=== PATIENT | female | born 1980 | race Caucasian/White ===

== ENCOUNTER 2016-11-05 20:41 | Inpatient (IN) | payer OTHER ==
[~2016-11-05] VITALS: Ht 162.6 cm; Wt 96.7 kg
[2016-11-05] MEDS ORDERED: LACTATED RINGER'S 1,000 ML IV SCH (21:11)
[2016-11-05] MEDS ORDERED: LIDOCAINE 1% (MPF) 30 ML INJ ONE (21:13)
[2016-11-05 21:25] VITALS: Ht 162.6 cm; Wt 96.7 kg
[2016-11-05 21:30] LABS: ADD SCAN DIFF NO
[2016-11-05] MEDS ORDERED: OXYTOCIN 30 UNITS/LR 500 ML IV PRN (21:30)
[2016-11-05] MEDS ORDERED: MISOPROSTOL 200 MCG TAB PR PRN (21:30)
[2016-11-05] MEDS ORDERED: AMPICILLIN 2 GM/NS (PMX) 100 ML IV ONE (21:30)
[2016-11-05] MEDS ORDERED: LACTATED RINGER'S 1,000 ML IV PRN (21:30)
[2016-11-05] MEDS ORDERED: LIDOCAINE 1% (MPF) 30 ML INJ INJ PRN (21:30)
[2016-11-05] MEDS ORDERED: BUTORPHANOL 2 MG INJ IV PRN ×2 (21:30)
[2016-11-05] MEDS ORDERED: ACETAMINOPHEN/CODEINE #3 TAB PO PRN (21:30)
[2016-11-05] MEDS ORDERED: CARBOPROST 250 MCG INJ IM PRN (21:30)
[2016-11-05] MEDS ORDERED: IBUPROFEN 600 MG TAB PO PRN (21:30)
[2016-11-05] MEDS ORDERED: METHYLERGONOVINE 0.2 MG INJ IM PRN (21:30)
[2016-11-05] MEDS ORDERED: OXYTOCIN 30 UNITS/LR 500 ML IV SCH ×2 (21:30)
[2016-11-05 21:31] LABS: BASOPHILS % 0.3 % (0.0-2.0); EOSINOPHILS # 0.1 10^3/ul (0.0-0.5); EOSINOPHILS % 0.6 % (0.0-7.0); HEMATOCRIT 39.8 % (37.0-47.0); HEMOGLOBIN 13.1 g/dl (12.0-16.0); LYMPHOCYTES # 1.8 10^3/ul (0.8-2.9); LYMPHOCYTES % 19.5 % (15.0-51.0); MEAN CORPUSCULAR HEMOGLOBIN 28.2 pg (29.0-33.0); MEAN CORPUSCULAR HGB CONC 32.9 g/dl (32.0-37.0); MEAN CORPUSCULAR VOLUME 85.6 fl (82.0-101.0); MEAN PLATELET VOLUME 10.1 fl (7.4-10.4); MONOCYTE # 0.7 10^3/ul (0.3-0.9); MONOCYTES % 7.5 % (0.0-11.0); NEUTROPHIL # 6.7 10^3/ul (1.6-7.5); NEUTROPHILS % 71.7 % (39.0-77.0); PLATELET COUNT 306 10^3/UL (140-415); RED BLOOD COUNT 4.65 10^6/ul (4.20-5.40); RED CELL DISTRIBUTION WIDTH 14.6 % (11.5-14.5); WHITE BLOOD COUNT 9.3 10^3/ul (4.8-10.8)
[2016-11-05 21:47] LABS: INR 0.89; PT RATIO 0.9
[2016-11-05 21:48] LABS: PARTIAL THROMBOPLASTIN TIME 26.7 Sec (25.0-35.0)
--- NOTE | 2016-11-05 21:59 | LDN ---
Date/Time of Note Date/Time of Note DATE: 11/05/16 TIME: 21:58 Delivery Summary Weeks of Gestation 39 wks Meconium: none Episiotomy: No Anesthesia type: None Estimated blood loss: 200 Sponge & Needle done & correct: Yes All needle counts correct: Yes Any foreign bodies felt in the: No Problems: Delivery Information Sex Sex: female Apgars 1 Minute: 9 5 Minute: 9 Suctioning Nose & mouth suctioned at murphy: Yes Delee suction performed: Yes Umbilical Cord Umbilical cord with: 3 Vessels Cord presentations: nuchal cord Nuchal cord present X: 1 Cord Blood was obtained: Yes Mother & Baby Disposition Disposition Mom & Baby to Maternity; Good: Yes Baby to NICU: No JAZLYN MORELOS M.D. November 05, 2016 21:59
--- NOTE | 2016-11-05 22:01 | HP ---
Date/Time of Note Date/Time of Note DATE: 11/05/16 TIME: 22:00 OB - History Hx of Present Free Text/Dictation @39+wks GA : 5 Para: 3 Care: Good Care Ultrasounds: Normal mid trimester US Obstetrical Complications: None Medical Complications: None Past Family/Social History * Past Medical, Surgical, Family and Obstetric Histories reviewed from chart. OB Admission Exam Physical Exam Abdomen: WNL Extremities: Normal Cervical Dilatation: 5cm Effacement: 75% Station: -1 Membranes: Ruptured Amniotic Fluid: Clear Heart Rate: 140's Accelerations: Accelerations Present Decelerations: No Decelerations Varibility: Moderate Contractions on Admission: < 5 Minutes Apart Last 72 hours Lab Results CBC & BMP 11/05/16 21:15 OB Assessment/Plan Reason for admission: active labor Plan: Expectant Management JAZLYN MORELOS M.D. November 05, 2016 22:01
[2016-11-05 23:50] VITALS: BP 121/77; PULSE 77; RESP 18
[2016-11-06 00:05] VITALS: BP 105/58; PULSE 89; RESP 18
[2016-11-06] MEDS: LACTATED RINGER'S 1,000 ML IV* SCH ×3 (00:31→15:48)
[2016-11-06] MEDS ORDERED: LANOLIN 7 GM TUBE TOP PRN (01:00)
[2016-11-06] MEDS ORDERED: BENZOCAINE 20% 56 ML SPRAY TOP PRN (01:00)
[2016-11-06] MEDS ORDERED: OXYTOCIN 30 UNITS/LR 500 ML IV PRN (01:00)
[2016-11-06] MEDS ORDERED: METHYLERGONOVINE 0.2 MG INJ IM PRN (01:00)
[2016-11-06] MEDS ORDERED: OXYCODONE/ASPIRIN (4.88/325) TAB PO PRN (01:00)
[2016-11-06] MEDS ORDERED: MISOPROSTOL 200 MCG TAB PR PRN (01:00)
[2016-11-06] MEDS ORDERED: ZOLPIDEM 5 MG TAB PO PRN (01:00)
[2016-11-06] MEDS ORDERED: CARBOPROST 250 MCG INJ IM PRN (01:00)
[2016-11-06] MEDS ORDERED: WITCH HAZEL/GLYCERIN PAD PR PRN (01:00)
[2016-11-06] MEDS ORDERED: DIPHENHYDRAMINE 25 MG CAP PO PRN (01:00)
[2016-11-06] MEDS ORDERED: AMPICILLIN 1 GM/NS (PMX) 50 ML IV SCH (01:30)
[2016-11-06 04:20] VITALS: BP 104/67; PULSE 85; RESP 20
[2016-11-06] MEDS: IBUPROFEN 600 MG TAB PO SCH ×4 (05:46→23:51)
[2016-11-06 08:00] VITALS: BP 102/55; PULSE 85; RESP 19
[2016-11-06 08:10] LABS: ADD SCAN DIFF NO
[2016-11-06 08:19] LABS: BASOPHILS % 0.2 % (0.0-2.0); EOSINOPHILS % 0.4 % (0.0-7.0); HEMATOCRIT 35.9 % (37.0-47.0); HEMOGLOBIN 11.8 g/dl (12.0-16.0); LYMPHOCYTES % 17.7 % (15.0-51.0); MEAN CORPUSCULAR HEMOGLOBIN 28.7 pg (29.0-33.0); MEAN CORPUSCULAR HGB CONC 32.9 g/dl (32.0-37.0); MEAN CORPUSCULAR VOLUME 87.3 fl (82.0-101.0); MEAN PLATELET VOLUME 10.8 fl (7.4-10.4); MONOCYTE # 0.9 10^3/ul (0.3-0.9); MONOCYTES % 8.3 % (0.0-11.0); NEUTROPHIL # 8.2 10^3/ul (1.6-7.5); PLATELET COUNT 244 10^3/UL (140-415); RED BLOOD COUNT 4.11 10^6/ul (4.20-5.40); RED CELL DISTRIBUTION WIDTH 14.7 % (11.5-14.5); WHITE BLOOD COUNT 11.3 10^3/ul (4.8-10.8)
--- NOTE | 2016-11-06 09:24 | PN ---
Date/Time of Note Date/Time of Note DATE: 11/06/16 TIME: 09:23 OB Subjective Subjective Subjective day 1 Afebrile vital signs stable abdomen soft uterus firm lochia normal extremity normal Labs Hematology Labs Hematology Test 11/06/16 06:45 White Blood Count 11.310^3/ul (4.8-10.8) Red Blood Count 4.1110^6/ul (4.20-5.40) Hemoglobin 11.8g/dl (12.0-16.0) Hematocrit 35.9% (37.0-47.0) Mean Corpuscular Volume 87.3fl (82.0-101.0) Mean Corpuscular Hemoglobin 28.7pg (29.0-33.0) Mean Corpuscular Hemoglobin Concent 32.9g/dl (32.0-37.0) Red Cell Distribution Width 14.7% (11.5-14.5) Platelet Count 90986^3/UL (140-415) Mean Platelet Volume 10.8fl (7.4-10.4) Neutrophils % 73.0% (39.0-77.0) Lymphocytes % 17.7% (15.0-51.0) Monocytes % 8.3% (0.0-11.0) Eosinophils % 0.4% (0.0-7.0) Basophils % 0.2% (0.0-2.0) Nucleated Red Blood Cells % 0.0/100WBC (0.0-0.0) Neutrophils # 8.210^3/ul (1.6-7.5) Lymphocytes # 2.010^3/ul (0.8-2.9) Monocytes # 0.910^3/ul (0.3-0.9) Eosinophils # 0.010^3/ul (0.0-0.5) Basophils # 0.010^3/ul (0.0-0.1) Nucleated Red Blood Cells # 0.010^3/ul (0.0-0.0) Coagulation Labs: Coagulation Test 11/05/16 21:15 Prothrombin Time 12.0Sec (12.2-14.2) Prothrombin Time Ratio 0.9 INR International Normalized Ratio 0.89 Activated Partial Thromboplast Time 26.7Sec (25.0-35.0) Labs Labs Test 11/05/16 21:15 Hepatitis B Surface Antigen NEGATIVE (NEGATIVE) TINO KUMAR MD November 06, 2016 09:24
[2016-11-06 16:00] VITALS: BP 111/66; PULSE 81; RESP 18
[2016-11-07] MEDS: LACTATED RINGER'S 1,000 ML IV* SCH ×3 (00:31→16:31)
[2016-11-07 04:20] VITALS: BP 112/53; PULSE 70; RESP 18
[2016-11-07] MEDS: IBUPROFEN 600 MG TAB PO SCH ×3 (05:37→17:32)
[2016-11-07 07:45] VITALS: BP 107/63; PULSE 83; RESP 19
[2016-11-07] MEDS ORDERED: DIPHTH/TET/ACEL PERTUSS (ADULT) 0.5 ML VIAL IM* ONE (09:00)
--- NOTE | 2016-11-07 11:41 | PD.PPDC ---
MICROBIOLOGY ANALYST Discharge Instruction Condition Patient Condition: Good Diet Diet: Resume Regular Diet Activity/Restrictions Restrictions: No Exercising No Lifting No Driving No Sexual Activity Nothing in the Vagina No [place] No Tampons, douche Follow-up Follow-up with Physician: 2, Week/Weeks Provider Information: Appointment clinic in 2 weeks for check Return to clinic for COMMERCIAL ANALYST Instructions: Fever greater than 101 Chills Worsening abdominal pain Excessive Vaginal Bleeding More than 2 pads per hour Unable to tolerate diet OB Instructions: Breast Tenderness Depression Blurried Vision Headache TINO KUMAR MD November 07, 2016 11:41
--- NOTE | 2016-11-07 11:44 | DS ---
Date/Time of Note Date/Time of Note DATE: 11/07/16 TIME: 11:41 Discharge Summary Admission/Discharge Info Admit Date/Time November 05, 2016 at 21:00 Discharge Date/Time November 07 at 11:42 AM Final Diagnosis Post normal vaginal delivery Patient Condition: Good Procedures Normal vaginal delivery Hx of Present Illness Term normal vaginal delivery Hospital Course Uneventful satisfactory Follow-up Plan Appointment clinic in 2 weeks for check Primary Care Provider [facility] Time spent on discharge: < 30 minutes TINO KUMAR MD November 07, 2016 11:44
[2016-11-07 16:04] VITALS: BP 111/65; PULSE 75; RESP 19
[2016-11-07 19:50] VITALS: BP 106/58; PULSE 84; RESP 18
== END 2016-11-07 22:00 | disposition home or self-care (01) | DRG 775 ==
LOC: OBT 20:41 → L-D 20:41 → OBT 21:00 → PP1 23:48
PROVIDERS: ADMIT Obstetrics & Gynecology; ATTEND Obstetrics & Gynecology
PROC: 10E0XZZ Delivery of Products of Conception, External Approach (ICD-10-PCS; principal; 2016-11-05)
DX: O69.1XX0 Labor and delivery complicated by cord around neck, with compression, not applicable or unspecified (principal); Z37.0 Single live birth; Z3A.39 39 weeks gestation of pregnancy
CPT/HCPCS: 85025; 85610; 85730; 86592; 86900; 86901; 87340; 90715; G0463; J0290; J2590; J7120

== ENCOUNTER 2018-06-08 05:55 | Day surgery (SDC) | END 2018-06-08 10:11 | disposition home or self-care (01) ==